=== PATIENT | female | born 1980 | race Caucasian/White ===

== ENCOUNTER 2021-12-20 15:01 | Emergency (ER) | payer OTHER ==
--- OUTSIDE RECORDS SUMMARY | 2021-12-20 15:06 | XMS REPORT | Continuity of Care Document ---
:1980 Author Organization [facility] t Address [address] [place] [address] Care Team Providers Name Role Phone Tamela Bender Primary Care Physician UNGERHERB Attending Clinician Unavailable Fiordaliza GREGORY Attending Clinician FIORDALIZA Attending Clinician Unavailable Only, Test Attending Clinician Unavailable 2, Lab Attending Clinician Unavailable GUCCI DAWSON Attending Clinician Unavailable Gucci Scott Attending Clinician Doctor Unassigned, Name Attending Clinician Unavailable Hector NICHOLS Attending Clinician Unavailable FIORDALIZA Admitting Clinician Unavailable Fiordaliza GREGORY Admitting Clinician Hector NICHOLS Admitting Clinician Unavailable Payers Payer Name Policy Type Policy Number Effective Date Expiration Date Tommy beatty FORMERLY [facility] [id number] 2017 00:00:00 PLUS Problems Condition Condition Condition Status Onset Resolution Last Treating Co mments Source Name Details Category Date Date Treatment Clinician Date Right Right Disease Active 2020-07 [facility] nephrolith nephrolith 1-30 it y of iasis iasis 00:00: [place] 00 Medical Branch Acute Acute Disease Active 2020-07 Overview: Univer s flank pain flank pain 1-19 [facility] ity of 00:00: g of this note Medical might be Branch different from the original. 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 Added automatic ally from request for surgery [id number] Right Right Disease Active Univers ureteral ureteral 9 ity of stone stone 00:00: [place] [facility] Irregular Irregular Disease Active Uni vers menstrual menstrual 03-06 ity of cycle cycle 00:00: [place] [facility] Dyspareuni Dyspareuni Disease Active U nivers a in a in 03-06 ity of female female 00:00: [place] [facility] Vaginal Vaginal Disease Active Univers dryness dryness 8 ity of 00:00: [place] [facility] Tourette Tourette Disease Active 2019-07 Unive rs syndrome syndrome 0-26 ity of 00:00: [place] [facility] Neuropathi Neuropathi Disease Active 2019-07 U nivers c pain c pain 0-26 ity of 00:00: [place] [facility] Hepatomega Hepatomega Disease Active 2019-07 U nivers ly ly 0-26 ity of 00:00: [place] [facility] Allergic Allergic Disease Active 2019-07 Unive rs rhinitis rhinitis 0-26 ity of due to due to 00:00: [place] pollen, pollen, 00 Medical unspecifie unspecifie Br anch d d seasonalit seasonalit y y Kidney Kidney Disease Active Overview: Univer s disease disease 5-25 Formattin ity o f 00:00: g of this [place] 00 note Medical might be Branch different from the original. Kidney stones Hidradenit Hidradenit Disease Active Overview : Univers is is 5-25 Formattin ity of suppurativ suppurativ 00:00: g of this [place] a a 00 note Medical might be Branch different from the original. Stage 3 Obesity Obesity Disease Active Univers (BMI (BMI 7-15 ity of 30-39.9) 30-39.9) 00:00: [place] 00 Medical Branch Allergies, Adverse Reactions, Alerts Allergy Allergy Status Severity Reaction(s) Onset Inactive Treating Comm ents Source Name Type Date Date Clinician NO KNOWN Drug Active Univers ALLERGIE Class ity of S [facility] Social History Social Habit Start Date Stop Date Quantity Comments Source History of Cigarette Smoker Universi ty of tobacco use [facility] Exposure to Not sure University of SARS-CoV-2 [facility] (event) Branch Alcohol intake 2021-06-10 2021-06-10 Current drinker Unive rsity of 00:00:00 00:00:00 of alcohol [facility] (finding) [place] Tobacco use and 2017-12-02 2017-12-02 Never used Universit y of exposure 00:00:00 00:00:00 [facility] Sex Ass[birth year] At [birth year] Universit y of 00:00:00 00:00:00 [facility] Smoking Status Start Date Stop Date Source Current every day smoker 2017-12-02 00:00:00 Uni versity of [facility] Medications Ordered Filled Start Stop Current Ordering Indication Dosage Frequency Signature Comments Components Source Medication Medication Date Date Medication? Clinician (SIG) Name Name sennosides 2020-07 Yes 8.6mg 8.6 mg, Uni vers (SENOKOT) 2- Oral, ity of tablet 8.6 15:00: DAILY, [place] mg 00 First dose Medical on Tue [place] 06/10/21 at 0900, Until Discontinu ed, Routine sennosides 2020-07 Yes 8.6mg 8.6 mg, Uni vers (SENOKOT) 2- Oral, ity of tablet 8.6 15:00: DAILY, [place] mg 00 First dose Medical on Tue [place] 06/10/21 at 0900, Until Discontinu ed, Routine naproxen 2020-07- No 2{capsu Take 2 Uni vers sodium -06-10 le} capsules ity of (ALEVE) 220 10:09: 00:00 by mouth [place] mg capsule 57 :00 daily. Medical Branch naproxen 2020-07- No 2{capsu Take 2 Uni vers sodium -06-10 le} capsules ity of (ALEVE) 220 10:09: 00:00 by mouth [place] mg capsule 57 :00 daily. Medical Branch oxybutynin 2020-07 Yes 5mg 5 mg, Univer s chloride 2- Oral, TID, ity o f (DITROPAN) 02:00: First dose [place] tablet 5 mg 00 on [facility] 06/09/21 Branch at 2000, Until Discontinu ed, Routine gabapentin 2020-07 Yes 300mg 300 mg, Uni vers (NEURONTIN) 2- Oral, TID, it y of capsule 300 02:00: First dose [place] mg 00 on [facility] 06/09/21 Branch at 2000, Until Discontinu ed, Routine oxybutynin 2020-07 Yes 5mg 5 mg, Univer s chloride 2-01 Oral, TID, ity o f (DITROPAN) 02:00: First dose [place] tablet 5 mg 00 on [facility] 06/09/21 Branch at 2000, Until Discontinu ed, Routine gabapentin 2020-07 Yes 300mg 300 mg, Uni vers (NEURONTIN) 2- Oral, TID, it y of capsule 300 02:00: First dose [place] mg 00 on [facility] 06/09/21 Branch at 2000, Until Discontinu ed, Routine tamsulosin 2020-07 Yes .4mg 0.4 mg, Univ ers (FLOMAX) 2-01 Oral, ity of capsule 0.4 01:15: DAILY, [place] mg 00 First dose Medical on [facility] 06/09/21 at 1915, Until Discontinu ed, Routine tamsulosin 2020-07 Yes .4mg 0.4 mg, Univ ers (FLOMAX) 2- Oral, ity of capsule 0.4 01:15: DAILY, [place] mg 00 First dose Medical on [facility] 06/09/21 at 1915, Until Discontinu ed, Routine acetaminoph 2020-07 Yes 650mg 650 mg, Un promise en 2-01 Oral, Q6H, ity of (TYLENOL) 00:00: First dose [place] tablet 650 00 on [facility] 06/09/21 Branch at 1800, Until Discontinu ed, Routine acetaminoph 2020-07 Yes 650mg 650 mg, Un promise en 2-01 Oral, Q6H, ity of (TYLENOL) 00:00: First dose [place] tablet 650 00 on [facility] 06/09/21 Branch at 1800, Until Discontinu ed, Routine acetaminoph 2020-07- No [id number] 650mg Take 2 Univers en 325 mg 2- 12-09 tablets by ity of tablet 00:00: 05:59 mouth [place] 00 :00 every 6 Medical (six) Branch hours as needed for Alternate with ibuprofen for pain scale 4-6 for up to 7 days. tamsulosin 2020-07- No [id number] .4mg Take 1 Univers 0.4 mg 24 2-01 12-09 capsule by ity of hr capsule 00:00: 05:59 mouth [place] 00 :00 daily for Medical 7 days. Branch oxybutynin 2020-07- No [id number] 5mg Take 1 Univers XL 08-11 tablet by ity of (DITROPAN 00:00: 05:59 mouth [place] XL) 5 mg 24 00 :00 daily for Med ical hr tablet 7 days. Branch acetaminoph 2020-07 No [id number] 650mg Take 2 Univers en 325 mg 08-11 tablets by ity of tablet 00:00: 05:59 mouth [place] 00 :00 every 6 Medical (six) Branch hours as needed for Alternate with ibuprofen for pain scale 4-6 for up to 7 days. tamsulosin 2020-07 No [id number] .4mg Take 1 Univers 0.4 mg 24 08-11 capsule by ity of hr capsule 00:00: 05:59 mouth [place] 00 :00 daily for Medical 7 days. Branch oxybutynin 2020-07 No [id number] 5mg Take 1 Univers XL 08-11 tablet by ity of (DITROPAN 00:00: 05:59 mouth [place] XL) 5 mg 24 00 :00 daily for Med ical hr tablet 7 days. Branch cephALEXin 2020-07 No [id number] 250mg Take 1 Univers 250 mg 08-11 capsule by ity of capsule 00:00: 05:59 mouth 4 [place] 00 :00 (four) Medical times Branch daily for 5 days. cephALEXin 2020-07- No [id number] 250mg Take 1 Univers 250 mg 08-11 capsule by ity of capsule 00:00: 05:59 mouth 4 [place] 00 :00 (four) Medical times Branch daily for 5 days. NaCl 0.9% 2020-07 Yes 1000mL at 100 Univ ers (NS) IV 1-30 mL/hr, IV ity of infusion 23:00: Infusion, [place] 1,000 mL 00 CONTINUOUS Medic al , Starting Branch on Tue06/09/21 at 1700, Until Discontinu ed, Routine lactated 2020-07 Yes 500mL at 75 Univers ringers IV 1-30 mL/hr, 500 ity of infusion 23:00: mL, IV [place] 500 mL 00 Infusion, Medical CONTINUOUS Branch , Starting on Tue06/09/21 at 1700, Until Discontinu ed, Routine, PACU NaCl 0.9% 2020-07 Yes 1000mL at 100 Univ ers (NS) IV 1-30 mL/hr, IV ity of infusion 23:00: Infusion, [place] 1,000 mL 00 CONTINUOUS Medic al , Starting Branch on Tue06/09/21 at 1700, Until Discontinu ed, Routine lactated 2020-07 Yes 500mL at 75 Univers ringers IV 1-30 mL/hr, 500 ity of infusion 23:00: mL, IV [place] 500 mL 00 Infusion, Medical CONTINUOUS Branch , Starting on Tue06/09/21 at 1700, Until Discontinu ed, Routine, PACU HYDROcodone 2020-07- No 1{tbl} 1 tablet, Univers -acetaminop 08-09 Oral, ity of hen (NORCO 23:00: 23:22 ONCE, 1 [place] 5) 5-325 mg 00 :00 dose, On Medi popeye tablet 1 Tue tablet 06/09/21 at 1700, Routine, PACU HYDROcodone 2020-07- No 1{tbl} 1 tablet, Univers -acetaminop 08-09 Oral, ity of hen (NORCO 23:00: 23:22 ONCE, 1 [place] 5) 5-325 mg 00 :00 dose, On Medi popeye tablet 1 Tue tablet 06/09/21 at 1700, Routine, PACU ketorolac 2020-07 Yes 15mg 15 mg, Univer s (TORADOL) 1-30 Slow IV ity of injection 22:54: Push, [place] 15 mg 51 Q6HPRN, 4 Medical doses, Branch Starting on Tue06/09/21 at 1654, Until Discontinu ed, Routine, Pain (scale 7-10)
F aculty member approving Restricted medication : TITO DEE ketorolac 2020-07 Yes 15mg 15 mg, Univer s (TORADOL) 1-30 Slow IV ity of injection 22:54: Push, [place] 15 mg 51 Q6HPRN, 4 Medical doses, Branch Starting on Tue06/09/21 at 1654, Until Discontinu ed, Routine, Pain (scale 7-10)
F aculty member approving Restricted medication : TITO DEE hyoscyamine 2020-07 Yes .125mg 0.125 mg, Univers sulfate 1-30 Sublingual ity of (LEVSIN/SL) 22:54: , Q4HPRN, [place] sublingual 40 Starting Medic al tablet on Tue Branch 0.125 mg 06/09/21 at 1654, Until Discontinu ed, Routine, Bladder spasms hyoscyamine 2020-07 Yes .125mg 0.125 mg, Univers sulfate 1-30 Sublingual ity of (LEVSIN/SL) 22:54: , Q4HPRN, [place] sublingual 40 Starting Medic al tablet on Tue Branch 0.125 mg 06/09/21 at 1654, Until Discontinu ed, Routine, Bladder spasms ondansetron 2020-07 Yes 4mg 4 mg, Slow Univers (ZOFRAN 1-30 IV Push, ity of (PF)) 22:52: Q4HPRN, [place] injection 4 33 Starting Medi popeye mg on Tue Branch 06/09/21 at 1652, Until Discontinu ed, Routine, Nausea and Vomiting (N/V) ondansetron 2020-07 Yes 4mg 4 mg, Slow Univers (ZOFRAN 1-30 IV Push, ity of (PF)) 22:52: Q4HPRN, [place] injection 4 33 Starting Medi popeye mg on Tue Branch 06/09/21 at 1652, Until Discontinu ed, Routine, Nausea and Vomiting (N/V) FENTanyl PF 2020-07- No 25ug 25 mcg, Un promise (SUBLIMAZE 30 12 Slow IV ity o f (PF)) 22:48: 05:50 Push, [place] injection 12 :59 Q5MIN PRN, Medi popeye 25 mcg 4 doses, Branch Starting on Tue06/09/21 at 1648, Until Tue06/09/21 at 2350, Routine, Pain (scale 4-6), PACU FENTanyl PF 2020-07- No 25ug 25 mcg, Un promise (SUBLIMAZE 08-09 12 Slow IV ity o f (PF)) 22:48: 05:50 Push, [place] injection 12 :59 Q5MIN PRN, Medi popeye 25 mcg 4 doses, Branch Starting on Tue06/09/21 at 1648, Until Tue06/09/21 at 2350, Routine, Pain (scale 4-6), PACU naproxen 2020-07 Yes 2{capsu Take 2 Univ ers sodium 1-29 le} capsules ity of (ALEVE) 220 08:38: by mouth [place] mg capsule 04 daily. Medical Branch naproxen 2020-07 Yes 2{capsu Take 2 Univ ers sodium 1-29 le} capsules ity of (ALEVE) 220 08:38: by mouth [place] mg capsule 04 daily. Medical Branch sulfamethox 2020-07- No [id number] 2{tbl} Take 2 Univers azole-trime 1-24 11-30 tablets by i ty of thoprim 00:00: 05:59 mouth 2 [place] (BACTRIM) 00 :00 (two) Medical 400-80 mg times Branch per tablet daily for 5 days. sulfamethox 2020-07- No [id number] 2{tbl} Take 2 Univers azole-trime 1-24 11-30 tablets by i ty of thoprim 00:00: 05:59 mouth 2 [place] (BACTRIM) 00 :00 (two) Medical 400-80 mg times Branch per tablet daily for 5 days. sulfamethox 2020-07- No [id number] 2{tbl} Take 2 Univers azole-trime 1-24 11-30 tablets by i ty of thoprim 00:00: 05:59 mouth 2 [place] (BACTRIM) 00 :00 (two) Medical 400-80 mg times Branch per tablet daily for 5 days. tamsulosin 2020-07 Yes [id number] .4mg Take 1 Univers (FLOMAX) 1-23 capsule by ity o f 0.4 mg 24 00:00: mouth [place] hr capsule 00 daily. Medical Branch tamsulosin 2020-07 Yes [id number] .4mg Take 1 Univers (FLOMAX) 1-23 capsule by ity o f 0.4 mg 24 00:00: mouth [place] hr capsule 00 daily. Medical Branch tamsulosin 2020-07 Yes [id number] .4mg Take 1 Univers (FLOMAX) 1-23 capsule by ity o f 0.4 mg 24 00:00: mouth [place] hr capsule 00 daily. Medical Branch tamsulosin 2020-07 Yes [id number] .4mg Take 1 Univers (FLOMAX) 1-23 capsule by ity o f 0.4 mg 24 00:00: mouth [place] hr capsule 00 daily. Medical Branch levoFLOXaci 2020-07- No 750mg 750 mg, IV Univers n in D5W 07-24 Piggyback, ity of (LEVAQUIN) 03:30: 03:54 ONCE, 1 [place] 750 mg/150 00 :00 dose, On Medic al mL Sat Branch Piggyback 05/23/21 750 mg at 2130, Administer over 90 Minutes, 150 mL
Reas on for Anti-Infec tive: Documented Infection< br>Documen syed Infection Site: Urine<br&g t;Duration of Therapy: 7 days acetaminoph 2020-07 No 1000mg 1,000 mg, Univers en 07-24 Oral, ity of (TYLENOL) 02:15: 01:19 ONCE, 1 [place] tablet 00 :00 dose, On Medical 1,000 mg Sat Branch 05/23/21 at 2014, BETTY ketorolac 2020-07 No 15mg 15 mg, Unive rs (TORADOL) 07-24 Slow IV ity of injection 02:15: 01:13 Push, [place] 15 mg 00 :00 ONCE, 1 Medical dose, On Branch 05/23/21 at 2014, BETTY
Fa culty member approving Restricted medication : Jamilah DAWSON ondansetron 2020-07 No 4mg 4 mg, Slow Univers (ZOFRAN 07-24 IV Push, ity of (PF)) 02:00: 01:13 ONCE, 1 [place] injection 4 00 :00 dose, On Medi popeye mg Sat Branch 05/23/21 at 2000, BETTY NaCl 0.9% 2020-07 No 1000mL at 999 Uni vers (NS) bolus 07-24 mL/hr, ity of infusion 02:00: 03:59 1,000 mL, [place] 1,000 mL 00 :00 IV Medical Infusion, Branch ONCE, 1 dose, On 05/23/21 at 2000, STAT ondansetron 2020-07 Yes [id number] 4mg Take 1 Univers (ZOFRAN 1-13 tablet by ity of ODT) 4 mg 00:00: mouth [place] disintegrat 00 every 8 Medic al ing tablet (eight) Branch hours as needed for Nausea and Vomiting (N/V). ondansetron 2020-07 Yes [id number] 4mg Take 1 Univers (ZOFRAN 1-13 tablet by ity of ODT) 4 mg 00:00: mouth [place] disintegrat 00 every 8 Medic al ing tablet (eight) Branch hours as needed for Nausea and Vomiting (N/V). ondansetron 2020-07 Yes [id number] 4mg Take 1 Univers (ZOFRAN 1-13 tablet by ity of ODT) 4 mg 00:00: mouth [place] disintegrat 00 every 8 Medic al ing tablet (eight) Branch hours as needed for Nausea and Vomiting (N/V). ondansetron 2020-07 Yes [id number] 4mg Take 1 Univers (ZOFRAN 1-13 tablet by ity of ODT) 4 mg 00:00: mouth [place] disintegrat 00 every 8 Medic al ing tablet (eight) Branch hours as needed for Nausea and Vomiting (N/V). ondansetron 2020-07 Yes [id number] 4mg Take 1 Univers (ZOFRAN 1-13 tablet by ity of ODT) 4 mg 00:00: mouth [place] disintegrat 00 every 8 Medic al ing tablet (eight) Branch hours as needed for Nausea and Vomiting (N/V). ondansetron 2020-07 Yes [id number] 4mg Take 1 Univers (ZOFRAN 1-13 tablet by ity of ODT) 4 mg 00:00: mouth [place] disintegrat 00 every 8 Medic al ing tablet (eight) Branch hours as needed for Nausea and Vomiting (N/V). ondansetron 2020-07 Yes [id number] 4mg Take 1 Univers (ZOFRAN 1-13 tablet by ity of ODT) 4 mg 00:00: mouth [place] disintegrat 00 every 8 Medic al ing tablet (eight) Branch hours as needed for Nausea and Vomiting (N/V). ondansetron 2020-07 Yes [id number] 4mg Take 1 Univers (ZOFRAN 1-13 tablet by ity of ODT) 4 mg 00:00: mouth [place] disintegrat 00 every 8 Medic al ing tablet (eight) Branch hours as needed for Nausea and Vomiting (N/V). ondansetron 2020-07 Yes [id number] 4mg Take 1 Univers (ZOFRAN 1-13 tablet by ity of ODT) 4 mg 00:00: mouth [place] disintegrat 00 every 8 Medic al ing tablet (eight) Branch hours as needed for Nausea and Vomiting (N/V). ondansetron 2020-07 Yes [id number] 4mg Take 1 Univers (ZOFRAN 1-13 tablet by ity of ODT) 4 mg 00:00: mouth [place] disintegrat 00 every 8 Medic al ing tablet (eight) Branch hours as needed for Nausea and Vomiting (N/V). levoFLOXaci 2020-07- No [id number] 750mg Take 1 Univers n 1-13 11-21 tablet by ity of (LEVAQUIN) 00:00: 05:59 mouth [place] 750 mg 00 :00 every 24 Medical tablet (twenty-fo Branch ur) hours for 7 days. levoFLOXaci 2020-07- No [id number] 750mg Take 1 Univers n 1-13 11-21 tablet by ity of (LEVAQUIN) 00:00: 05:59 mouth [place] 750 mg 00 :00 every 24 Medical tablet (twenty-fo Branch ur) hours for 7 days. naproxen 2020-07 Yes 2{capsu Take 2 Univ ers sodium 1-03 le} capsules ity of (ALEVE) 220 20:48: by mouth [place] mg capsule 00 daily. Medical Branch naproxen 2020-07 Yes 2{capsu Take 2 Univ ers sodium 1-03 le} capsules ity of (ALEVE) 220 20:48: by mouth [place] mg capsule 00 daily. Medical Branch naproxen 2020-07 Yes 2{capsu Take 2 Univ ers sodium 1-03 le} capsules ity of (ALEVE) 220 20:48: by mouth [place] mg capsule 00 daily. Medical Branch naproxen 2020-07 Yes 2{capsu Take 2 Univ ers sodium 1-03 le} capsules ity of (ALEVE) 220 20:48: by mouth [place] mg capsule 00 daily. Medical Branch naproxen 2020-07 Yes 2{capsu Take 2 Univ ers sodium 1-03 le} capsules ity of (ALEVE) 220 20:48: by mouth [place] mg capsule 00 daily. Medical Branch naproxen 2020-07 Yes 2{capsu Take 2 Univ ers sodium 1-03 le} capsules ity of (ALEVE) 220 20:48: by mouth [place] mg capsule 00 daily. Medical Branch naproxen 2020-07 Yes 2{capsu Take 2 Univ ers sodium 1-03 le} capsules ity of (ALEVE) 220 20:48: by mouth [place] mg capsule 00 daily. Medical Branch gabapentin 2020-07 Yes [id number] 300mg Take 1 Univers 300 mg 1-02 capsule by ity of capsule 00:00: mouth 3 [place] 00 (three) Medical times Branch daily. tamsulosin 2020-07 Yes [id number] .4mg Take 1 Univers (FLOMAX) 1-02 capsule by ity o f 0.4 mg 24 00:00: mouth [place] hr capsule 00 daily. Medical Branch oxybutynin 2020-07 Yes [id number] 5mg Take 1 Univers chloride 5 1-02 tablet by ity of mg tablet 00:00: mouth 3 [place] 00 (three) Medical times Branch daily as needed for Bladder spasms. gabapentin 2020-07 Yes [id number] 300mg Take 1 Univers 300 mg 1-02 capsule by ity of capsule 00:00: mouth 3 [place] 00 (three) Medical times Branch daily. tamsulosin 2020-07 Yes [id number] .4mg Take 1 Univers (FLOMAX) 1-02 capsule by ity o f 0.4 mg 24 00:00: mouth [place] hr capsule 00 daily. Medical Branch oxybutynin 2020-07 Yes [id number] 5mg Take 1 Univers chloride 5 1-02 tablet by ity of mg tablet 00:00: mouth 3 [place] 00 (three) Medical times Branch daily as needed for Bladder spasms. gabapentin 2020-07 Yes [id number] 300mg Take 1 Univers 300 mg 1-02 capsule by ity of capsule 00:00: mouth 3 [place] 00 (three) Medical times Branch daily. tamsulosin 2020-07 Yes [id number] .4mg Take 1 Univers (FLOMAX) 1-02 capsule by ity o f 0.4 mg 24 00:00: mouth [place] hr capsule 00 daily. Medical Branch oxybutynin 2020-07 Yes [id number] 5mg Take 1 Univers chloride 5 1-02 tablet by ity of mg tablet 00:00: mouth 3 (three) Medical times Branch daily as needed for Bladder spasms. gabapentin 2020-07 Yes [id number] 300mg Take 1 Univers 300 mg 1-02 capsule by ity of capsule 00:00: mouth 3 (three) Medical times Branch daily. tamsulosin 2020-07 Yes [id number] .4mg Take 1 Univers (FLOMAX) 1-02 capsule by ity o f 0.4 mg 24 00:00: mouth [place] hr capsule 00 daily. Medical Branch oxybutynin 2020-07 Yes [id number] 5mg Take 1 Univers chloride 5 1-02 tablet by ity of mg tablet 00:00: mouth (three) Medical times Branch daily as needed for Bladder spasms. gabapentin 2020-07 Yes [id number] 300mg Take 1 Univers 300 mg 1-02 capsule by ity of capsule 00:00: mouth (three) Medical times Branch daily. tamsulosin 2020-07 Yes [id number] .4mg Take 1 Univers (FLOMAX) 1-02 capsule by ity o f 0.4 mg 24 00:00: mouth [place] hr capsule 00 daily. Medical Branch oxybutynin 2020-07 Yes [id number] 5mg Take 1 Univers chloride 5 1-02 tablet by ity of mg tablet 00:00: mouth (three) Medical times Branch daily as needed for Bladder spasms. gabapentin 2020-07 Yes [id number] 300mg Take 1 Univers 300 mg 1-02 capsule by ity of capsule 00:00: mouth (three) Medical times Branch daily. oxybutynin 2020-07 Yes [id number] 5mg Take 1 Univers chloride 5 1-02 tablet by ity of mg tablet 00:00: mouth (three) Medical times Branch daily as needed for Bladder spasms. gabapentin 2020-07 Yes [id number] 300mg Take 1 Univers 300 mg 1-02 capsule by ity of capsule 00:00: mouth (three) Medical times Branch daily. oxybutynin 2020-07 Yes [id number] 5mg Take 1 Univers chloride 5 1-02 tablet by ity of mg tablet 00:00: mouth 3 (three) Medical times Branch daily as needed for Bladder spasms. gabapentin 2020-07 Yes [id number] 300mg Take 1 Univers 300 mg 1-02 capsule by ity of capsule 00:00: mouth [place] (three) Medical times Branch daily. oxybutynin 2020-07 Yes [id number] 5mg Take 1 Univers chloride 5 1-02 tablet by ity of mg tablet 00:00: mouth 3 [place] (three) Medical times Branch daily as needed for Bladder spasms. gabapentin 2020-07 Yes [id number] 300mg Take 1 Univers 300 mg 1-02 capsule by ity of capsule 00:00: mouth 3 [place] (three) Medical times Branch daily. oxybutynin 2020-07 Yes [id number] 5mg Take 1 Univers chloride 5 1-02 tablet by ity of mg tablet 00:00: mouth 3 [place] (three) Medical times Branch daily as needed for Bladder spasms. gabapentin 2020-07 Yes [id number] 300mg Take 1 Univers 300 mg 1-02 capsule by ity of capsule 00:00: mouth [address] [place] [address] () Medical times Branch daily. gabapentin 2020-07 Yes [id number] 300mg Take 1 Univers 300 mg 1-02 capsule by ity of capsule 00:00: mouth 3 [place] (three) Medical times Branch daily. gabapentin 2020-07 Yes [id number] 300mg Take 1 Univers 300 mg 1-02 capsule by ity of capsule 00:00: mouth 3 [place] (three) Medical times Branch daily. oxybutynin 2020-07- No [id number] 5mg Take 1 Univers chloride 5 1-02 12- tablet by ity of mg tablet 00:00: 00:00 mouth 3 [place] 00 :00 (three) Medical times Branch daily as needed for Bladder spasms. oxybutynin 2020-07- No [id number] 5mg Take 1 Univers chloride 5 1-02 12- tablet by ity of mg tablet 00:00: 00:00 mouth 3 [place] 00 :00 (three) Medical times Branch daily as needed for Bladder spasms. tamsulosin 2020-07- No [id number] .4mg Take 1 Univers (FLOMAX) 1- 11-23 capsule by ity of 0.4 mg 24 00:00: 00:00 mouth [place] hr capsule 00 :00 daily. Medical Branch tamsulosin 2020-07- No [id number] .4mg Take 1 Univers (FLOMAX) 07-12-23 capsule by ity of 0.4 mg 24 00:00: 00:00 mouth [place] hr capsule 00 :00 daily. Medical Branch tamsulosin 2020-07- No [id number] .4mg Take 1 Univers (FLOMAX) 07-1223 capsule by ity of 0.4 mg 24 00:00: 00:00 mouth [place] hr capsule 00 :00 daily. Medical Branch Estradiol 2020-07 Yes [id number] 10ug Insert 1 Univers (VAGIFEM) 0-01 tablet ity of 10 mcg 00:00: into [place] tablet 00 vagina 2 Medical (two) Branch times per week. Estradiol 2020-07 Yes [id number] 10ug Insert 1 Univers (VAGIFEM) 0-01 tablet ity of 10 mcg 00:00: into [place] tablet 00 vagina 2 Medical (two) Branch times per week. Estradiol 2020-07 Yes [id number] 10ug Insert 1 Univers (VAGIFEM) 0-01 tablet ity of 10 mcg 00:00: into [place] tablet 00 vagina 2 Medical (two) Branch times per week. Estradiol 2020-07 Yes [id number] 10ug Insert 1 Univers (VAGIFEM) 0-01 tablet ity of 10 mcg 00:00: into [place] tablet 00 vagina 2 Medical (two) Branch times per week. Estradiol 2020-07 Yes [id number] 10ug Insert 1 Univers (VAGIFEM) 0-01 tablet ity of 10 mcg 00:00: into [place] tablet 00 vagina 2 Medical (two) Branch times per week. Estradiol 2020-07 Yes [id number] 10ug Insert 1 Univers (VAGIFEM) 0-01 tablet ity of 10 mcg 00:00: into [place] tablet 00 vagina 2 Medical (two) Branch times per week. Estradiol 2020-07 Yes [id number] 10ug Insert 1 Univers (VAGIFEM) 0-01 tablet ity of 10 mcg 00:00: into [place] tablet 00 vagina 2 Medical (two) Branch times per week. Estradiol 2020-07 Yes [id number] 10ug Insert 1 Univers (VAGIFEM) 0-01 tablet ity of 10 mcg 00:00: into [place] tablet 00 vagina 2 Medical (two) Branch times per week. Estradiol 2020-07 Yes [id number] 10ug Insert 1 Univers (VAGIFEM) 0-01 tablet ity of 10 mcg 00:00: into [place] tablet 00 vagina 2 Medical (two) Branch times per week. Estradiol 2020-07 Yes [id number] 10ug Insert 1 Univers (VAGIFEM) 0-01 tablet ity of 10 mcg 00:00: into [place] tablet 00 vagina 2 Medical (two) Branch times per week. Estradiol 2020-07 Yes [id number] 10ug Insert 1 Univers (VAGIFEM) 0-01 tablet ity of 10 mcg 00:00: into [place] tablet 00 vagina 2 Medical (two) Branch times per week. Estradiol 2020-07 Yes [id number] 10ug Insert 1 Univers (VAGIFEM) 0-01 tablet ity of 10 mcg 00:00: into [place] tablet 00 vagina 2 Medical (two) Branch times per week. norethindro Yes [id number] 1{tbl} Take 1 Univers ne 0.35 mg 9-17 tablet by ity of tablet 00:00: mouth [place] 00 daily. Medical Branch Estradiol Yes [id number] 10ug Insert 1 Univers (VAGIFEM) 9-17 tablet ity of 10 mcg 00:00: into [place] tablet 00 vagina at Medical bedtime. Branch norethindro Yes [id number] 1{tbl} Take 1 Univers ne 0.35 mg 9-17 tablet by ity of tablet 00:00: mouth [place] 00 daily. Medical Branch Estradiol Yes [id number] 10ug Insert 1 Univers (VAGIFEM) 9-17 tablet ity of 10 mcg 00:00: into [place] tablet 00 vagina at Medical bedtime. Branch norethindro Yes [id number] 1{tbl} Take 1 Univers ne 0.35 mg 9-17 tablet by ity of tablet 00:00: mouth [place] 00 daily. Medical Branch Estradiol Yes [id number] 10ug Insert 1 Univers (VAGIFEM) 9-17 tablet ity of 10 mcg 00:00: into [place] tablet 00 vagina at Medical bedtime. Branch norethindro Yes [id number] 1{tbl} Take 1 Univers ne 0.35 mg 9-17 tablet by ity of tablet 00:00: mouth [place] 00 daily. Medical Branch Estradiol Yes [id number] 10ug Insert 1 Univers (VAGIFEM) 9-17 tablet ity of 10 mcg 00:00: into [place] tablet 00 vagina at Medical bedtime. Branch [facility] Yes [id number] 1{tbl} Take 1 Univers ne 0.35 mg 9-17 tablet by ity of tablet 00:00: mouth [place] 00 daily. [facility] Estradiol Yes [id number] 10ug Insert 1 Univers (VAGIFEM) 9-17 tablet ity of 10 mcg 00:00: into [place] tablet 00 vagina at Medical bedtime. Branch [facility] Yes [id number] 1{tbl} Take 1 Univers ne 0.35 mg 9-17 tablet by ity of tablet 00:00: mouth [place] 00 daily. [facility] Estradiol Yes [id number] 10ug Insert 1 Univers (VAGIFEM) 9-17 tablet ity of 10 mcg 00:00: into [place] tablet 00 vagina at Medical bedtime. [place] [facility] Yes [id number] 1{tbl} Take 1 Univers ne 0.35 mg 9-17 tablet by ity of tablet 00:00: mouth [place] 00 daily. [facility] Estradiol Yes [id number] 10ug Insert 1 Univers (VAGIFEM) 9-17 tablet ity of 10 mcg 00:00: into [place] tablet 00 vagina at Medical bedtime. [place] [facility] Yes [id number] 1{tbl} Take 1 Univers ne 0.35 mg 9-17 tablet by ity of tablet 00:00: mouth [place] 00 daily. [facility] Estradiol Yes [id number] 10ug Insert 1 Univers (VAGIFEM) 9-17 tablet ity of 10 mcg 00:00: into [place] tablet 00 vagina at Medical bedtime. Branch [facility] Yes [id number] 1{tbl} Take 1 Univers ne 0.35 mg 9-17 tablet by ity of tablet 00:00: mouth [place] 00 daily. [facility] Estradiol Yes [id number] 10ug Insert 1 Univers (VAGIFEM) 9-17 tablet ity of 10 mcg 00:00: into [place] tablet 00 vagina at Medical bedtime. Branch [facility] Yes [id number] 1{tbl} Take 1 Univers ne 0.35 mg 9-17 tablet by ity of tablet 00:00: mouth [place] 00 daily. [facility] Estradiol 2020-0 Yes [id number] 10ug Insert 1 Univers (VAGIFEM) 9-17 tablet ity of 10 mcg 00:00: into [place] tablet 00 vagina at Medical bedtime. Branch norethindro 2020-0 Yes [id number] 1{tbl} Take 1 Univers ne 0.35 mg 9-17 tablet by ity of tablet 00:00: mouth [place] 00 daily. [facility] Estradiol 2020-0 Yes [id number] 10ug Insert 1 Univers (VAGIFEM) 9-17 tablet ity of 10 mcg 00:00: into [place] tablet 00 vagina at Medical bedtime. Branch norethindro 0 Yes [id number] 1{tbl} Take 1 Univers ne 0.35 mg 9-17 tablet by ity of tablet 00:00: mouth [place] 00 daily. [facility] Estradiol 2020-0 Yes [id number] 10ug Insert 1 Univers (VAGIFEM) 9-17 tablet ity of 10 mcg 00:00: into [place] tablet 00 vagina at Medical bedtime. Branch escitalopra 0 Yes Univer s m oxalate 8-21 ity of 20 mg 00:00: [place] tablet 00 [facility] metFORMIN 2020-0 Yes Univers 500 mg 8-21 ity of tablet 00:00: [place] 00 [facility] escitalopra 2020-0 Yes Univer s m oxalate 8-21 ity of 20 mg 00:00: [place] tablet 00 [facility] metFORMIN 2020-0 Yes Univers 500 mg 8-21 ity of tablet 00:00: [place] 00 [facility] escitalopra 2020-0 Yes Univer s m oxalate 8-21 ity of 20 mg 00:00: [place] tablet 00 [facility] metFORMIN 1-0 Yes Univers 500 mg 8-21 ity of tablet 00:00: [place] 00 [facility] escitalopra 2020-0 Yes Univer s m oxalate 8-21 ity of 20 mg 00:00: [place] tablet 00 [facility] metFORMIN 1-0 Yes Univers 500 mg 8-21 ity of tablet 00:00: [place] 00 [facility] escitalopra 2020-0 Yes Univer s m oxalate 8-21 ity of 20 mg 00:00: [place] tablet 00 Medical Branch metFORMIN 1-0 Yes Univers 500 mg 8-21 ity of tablet 00:00: [place] 00 Medical Branch escitalopra 2020-0 Yes Univer s m oxalate 8-21 ity of 20 mg 00:00: [place] tablet 00 Medical Branch metFORMIN 2020-0 Yes Univers 500 mg 8-21 ity of tablet 00:00: [place] [facility] escitalopra 2020-0 Yes Univer s m oxalate 8-21 ity of 20 mg 00:00: [place] tablet 00 Medical Branch metFORMIN 2020-0 Yes Univers 500 mg 8-21 ity of tablet 00:00: [place] [facility] escitalopra 2020-0 Yes Univer s m oxalate 8-21 ity of 20 mg 00:00: [place] tablet 00 Medical Branch metFORMIN 2020-0 Yes Univers 500 mg 8-21 ity of tablet 00:00: [place] [facility] escitalopra 2020-0 Yes Univer s m oxalate 8-21 ity of 20 mg 00:00: [place] tablet 00 Medical Branch metFORMIN 2020-0 Yes Univers 500 mg 8-21 ity of tablet 00:00: [place] [facility] escitalopra 2020-0 Yes Univer s m oxalate 8-21 ity of 20 mg 00:00: [place] tablet 00 Medical Branch metFORMIN 2020-0 Yes Univers 500 mg 8-21 ity of tablet 00:00: [place] [facility] escitalopra 2020-0 Yes Univer s m oxalate 8-21 ity of 20 mg 00:00: [place] tablet 00 Medical Branch metFORMIN 1-0 Yes Univers 500 mg 8-21 ity of tablet 00:00: [place] [facility] escitalopra 2020-0 Yes Univer s m oxalate 8-21 ity of 20 mg 00:00: [place] tablet 00 Medical Branch metFORMIN 1-0 Yes Univers 500 mg 8-21 ity of tablet 00:00: [place] [facility] traZODone 2020-0 Yes TAKE 1 AND Un promise 100 mg 8-11 1/2 ity of tablet 00:00: TABLETS BY [place] [address] MOUTH [facility] EVERY DAY [place] AT BEDTIME NEEDED traZODone 2020-0 Yes TAKE 1 AND Un promise 100 mg 8-11 1/2 ity of tablet 00:00: TABLETS BY [place] [address] MOUTH [facility] EVERY DAY [place] AT BEDTIME NEEDED traZODone 2020-0 Yes TAKE 1 AND Un promise 100 mg 8-11 1/2 ity of tablet 00:00: TABLETS BY [address] EVERY DAY Branch AT BEDTIME NEEDED traZODone 2020-0 Yes TAKE 1 AND Un promise 100 mg 8-11 1/2 ity of tablet 00:00: TABLETS BY [address] EVERY DAY Branch AT BEDTIME NEEDED traZODone 2020-0 Yes TAKE 1 AND Un promise 100 mg 8-11 1/2 ity of tablet 00:00: TABLETS BY [address] EVERY DAY Branch AT BEDTIME NEEDED traZODone 2020-0 Yes TAKE 1 AND Un promise 100 mg 8-11 1/2 ity of tablet 00:00: TABLETS BY [address] EVERY DAY Branch AT BEDTIME NEEDED traZODone 2020-0 Yes TAKE 1 AND Un promise 100 mg 8-11 1/2 ity of tablet 00:00: TABLETS BY [address] EVERY DAY Branch AT BEDTIME NEEDED traZODone 2020-0 Yes TAKE 1 AND Un promise 100 mg 8-11 1/2 ity of tablet 00:00: TABLETS BY [address] EVERY DAY Branch AT BEDTIME NEEDED traZODone 2020-0 Yes TAKE 1 AND Un promise 100 mg 8-11 1/2 ity of tablet 00:00: TABLETS BY [address] EVERY DAY Branch AT BEDTIME NEEDED traZODone 2020-0 Yes TAKE 1 AND Un promise 100 mg 8-11 1/2 ity of tablet 00:00: TABLETS BY [address] EVERY DAY Branch AT BEDTIME NEEDED traZODone 2020-0 Yes TAKE 1 AND Un promise 100 mg 8-11 1/2 ity of tablet 00:00: TABLETS BY [address] EVERY DAY Branch AT BEDTIME NEEDED traZODone 2020-0 Yes TAKE 1 AND Un promise 100 mg 8-11 1/2 ity of tablet 00:00: TABLETS BY [address] EVERY DAY Branch AT BEDTIME NEEDED Vital Signs Vital Name Observation Time Observation Value Comments Source Systolic blood 2021-06-10 13:34:00 114 mm[Hg] Univer sity of pressure [facility] Diastolic blood 2021-06-10 13:34:00 65 mm[Hg] Unive rsity of pressure [place] [facility] Heart rate 2021-06-10 13:34:00 59 /min [facility] [place] [facility] Body temperature 2021-06-10 13:34:00 36.11 [place] Univ ersity of [place] [facility] Respiratory rate 2021-06-10 13:34:00 16 /min Univ ersity of [place] [facility] Oxygen saturation in 2021-06-10 13:34:00 94 /min University of Arterial blood by [employer] Pulse oximetry Branch Body height 2021-06-10 06:11:00 165.1 cm [facility] [place] [facility] Body weight 2021-06-10 06:11:00 97.3 kg [facility] [place] [facility] BMI 2021-06-10 06:11:00 35.70 kg/m2 [facility] [place] [facility] Heart rate 2021-06-10 02:00:00 88 /min [facility] [place] [facility] Oxygen saturation in 2021-06-10 02:00:00 98 /min University of Arterial blood by [place] [employer] Pulse oximetry Branch Systolic blood 2021-06-10 01:00:00 123 mm[Hg] Univer sity of pressure [place] [facility] Diastolic blood 2021-06-10 01:00:00 76 mm[Hg] Unive rsity of pressure [place] [facility] Respiratory rate 2021-06-10 01:00:00 14 /min Univ ersity of [place] [facility] Body temperature 2021-06-09 22:50:00 36.39 [place] Univ ers[facility] [place] [facility] Body height 2021-06-09 19:07:00 165.1 cm [facility] [place] [facility] Body weight 2021-06-09 19:07:00 97.3 kg [facility] [place] [facility] BMI 2021-06-09 19:07:00 35.70 kg/m2 [facility] [place] [facility] Systolic blood 2021-05-24 02:00:00 123 mm[Hg] Univer sity of pressure [place] [facility] Diastolic blood 2021-05-24 02:00:00 91 mm[Hg] Unive rsity of pressure [place] [facility] Heart rate 2021-05-24 02:00:00 97 /min [facility] [place] [facility] Respiratory rate 2021-05-24 02:00:00 16 /min [facility] Oxygen saturation in 2021-05-24 02:00:00 97 /min [facility] Arterial blood by [facility] Pulse oximetry Branch Body temperature 2021-05-24 00:39:00 37.61 [place] [facility] Body height 2021-05-24 00:39:00 167.6 cm [facility] Body weight 2021-05-24 00:39:00 106.142 kg [facility] BMI 2021-05-24 00:39:00 37.77 kg/m2 [facility] Procedures Procedure Date / Time Performing Clinician Source Performed URINE CULTURE 2021-06-09 21:51:00 [facility] 2021-06-09 21:17:00 Fiordaliza [facility] URETEROSCOPIC STONE 2021-06-09 21:17:00 Fiordaliza [facility] POCT TEST 2021-06-09 19:13:00 Fabiano Holly [facility] POCT TEST 2021-06-09 19:13:00 Fabiano Holly [facility] CONSENT/REFUSAL FOR 2021-06-09 18:44:26 Doctor Unassigned, No [facility] DIAGNOSIS AND TREATMENT [facility] CONSENT/REFUSAL FOR 2021-06-09 18:44:26 Doctor Unassigned, No [facility] DIAGNOSIS AND TREATMENT [facility] ASSIGNMENT OF BENEFITS 2021-06-09 18:43:24 Doctor Unassigned, No [facility] ASSIGNMENT OF BENEFITS 2021-06-09 18:43:24 Doctor Unassigned, No [facility] COVID-19 (ID NOW RAPID 2021-06-08 19:15:00 Tito Dee [facility] TESTING) [facility] LACTIC ACID WHOLE BLOOD 2021-05-24 01:02:00 Jamilah Dawson [facility] MAGNESIUM 2021-05-24 01:00:00 Jamilah Dawson [facility] o f [facility] COMP. METABOLIC PANEL 2021-05-24 01:00:00 Jamilah Dawson [facility] ([id number]) [facility] CBC WITH DIFF 2021-05-24 01:00:00 Jamilah Dawson [place] o f [facility] URINALYSIS 2021-05-24 01:00:00 Jamilah Dawson [place] o f [facility] NOTICE OF PRIVACY 2021-05-24 00:26:40 Doctor Unassigned, No Univ [facility] PRACTICES Name [facility] CONSENT/REFUSAL FOR 2021-05-24 00:26:27 [facility]assigned, No [facility] SURGERY - [place] 2021-05-12 05:01:00 Doctor Unassigned, N o [facility] Name [facility] Encounters Start End Encounter Admission Attending Care Care Encounter Source Date/Time Date/Time Type Type Clinicians Facility Department ID 2021-06-26 2021-06-26 Outpatient R BLAZE UNGER [facility] [id number] Univers 14:00:00 14:00:00 ity of [facility] 2021-06-12 2021-06-12 Patient Fiordaliza [facility] [id number] Univers 00:00:00 [facility]00[id number] ity of [facility] 4.2.7.2.686 [facility] - [phone] [facility] Branch 2021-06-09 2021-06-10 Outpatient R FIORDALIZA [facility] SUU [id number] Univers 12:42:00 14:00:00 TITO ity of [facility] 2021-06-09 2021-06-10 Hospital JULIO Dee [id number] Univers 12:42:00 14:00:00 Encounter Tito GWEN [id number] ity of [facility] 4.2.7.2.686 [place] [id number] [facility] 091 Branch 2021-06-09 2021-06-09 Surgery Fiordaliza JULIO [id number] Univers 18:00:00 20:44:00 Tito GWEN [id number] it y of [facility] 4.2.7.2.686 [place] [id number] [facility] 103 Branch 2021-06-08 2021-06-08 Laboratory Only, Adc Test [facility] 1.2.840. [id number] Univers 13:03:39 13:18:39 Only Tito Dee [id number] ity of [place] 4.2.7.2.686 [facility] [id number] [facility] 353 Branch 2021-06-08 2021-06-08 Outpatient [facility] [id number] Univers 13:00:00 13:00:00 [id number] ity [facility] 2021-06-08 2021-06-08 Outpatient R FIORDALIZA [facility] [id number] Univers 13:00:00 13:00:00 TITO ity [facility] 2021-06-03 2021-06-03 Telephone Fiordaliza [facility] [id number] Univers 00:00:00 00:00:00 [facility] [id number] it y of [place] 4.2.7.2.686 [facility] - [id number] Med ical [facility] 204 Branch 2021-06-03 2021-06-03 Patient Fiordaliza [facility] 1.2.840.114 [id number] Univers 00:00:00 00:00:00 Secure Msg [facility] [id number] ity of [place] 4.2.7.2.686 [facility] - [id number] Med ical [facility] 204 Branch 2021-06-02 2021-06-02 Outpatient R [facility] [id number] Univers 10:30:00 10:30:00 [id number] ity [facility] 2021-06-02 2021-06-02 Outpatient R FIORDALIZA [facility] [id number] Univers 10:30:00 10:30:00 TITO ity [facility] 2021-06-02 2021-06-02 Millinery Designer 2, Adc Lab [facility] 1.2.840.114 [id number] Univers 10:25:05 10:29:12 Visit Tito Dee [id number] ity of [facility] [place] [id number] [place] dical [facility] 353 [facility] 2021-06-02 2021-06-02 Refill [facility] 1.2.840.114 [id number] Univers 00:00:00 00:00:00 [facility] [id number] i ty of [facility] [place] [id number] [facility] 204 [facility] 2021-05-29 2021-05-29 Telephone [facility] 1.2.840.114 [id number] Univers 00:00:00 00:00:00 Tito MUKILTEO 350.1.13.10 i ty of [facility] [place] [id number] [facility] 204 [facility] 2021-05-23 2021-05-23 Emergency X Jamilah DAWSON [facility] ERT [id number] Univers 18:31:00 22:25:00 ity of [facility] 2021-05-23 2021-05-23 Emergency Jamilah Dawson [facility] 1.2.840.114 [id number] Univers 18:31:00 22:25:00 Gucci DORCAS 350.1.13.10 i ty of [facility] 4.2.7.2.686 [facility] [id number] [facility] 084 [place] 2021-05-20 2021-05-20 Outpatient [facility] [id number] Univers 14:30:00 14:30:00 [id number] ity of [facility] 2021-05-20 2021-05-20 Telephone [facility] 1.2.840.114 [id number] Univers 00:00:00 00:00:00 [facility] 350.1.13.10 it y of [place] 4.2.7.2.686 [facility] [id number] Med ical [facility] 204 [place] 2021-05-12 2021-05-12 Orders Doctor PADMA 1.2.840.114 [id number] Univers 00:00:00 00:00:00 Only Unassigned, GWEN 350.1.13.[address] [facility] 4.2.7.2.686 [place] [id number] [address] 2019-07-20 2019-07-20 Emergency X SIMONE [facility] ERT [id number] Univers 12:42:42 15:59:00 STEPHEN ity of [facility] Results Test Description Test Time Test Comments Results Result Comments Source URINE CULTURE 2021-06-10 22:03:09 Test Item Value Reference Range Interpretation Comme nts URINE CULTURE (test code = 630-4) No aerobic growth (< 1000 CFU/mL) [id number] 19:13:00 Test Item Value Reference Range Interpretation Comments POCT PREG (test code = 1605) Negative On board controls acceptable with C Yes Line (test code = 3574) POCT PREG LOT # (test code = 3575) POCT PREG TEST DATE (test code = 3576) [facility] [id number] 19:13:00 Test Item Value Reference Range Interpretation Comments POCT PREG (test code = 1605) Negative On board controls acceptable with C Yes Line (test code = 3574) POCT PREG LOT # (test code = 3575) POCT PREG TEST DATE (test code = 3576) [facility]21[facility]14 02:02:47 Test Item Value Reference Range Interpretation Comments MAGNESIUM (test code = 2515395124) 1.7 mg/dL 1.7-2.4 Lab Interpretation (test code = Normal 95285-9) [facility] (32335)2021-05-24 02:02:26 Test Item Value Reference Range Interpretation Comments NA (test code = 131 mmol/L 135-145 L 0660163425) K (test code = 3.7 mmol/L 3.5-5.0 4781007486) CL (test code = 98 mmol/L 98-108 7219416652) CO2 TOTAL (test code = 24 mmol/L 23-31 8136140950) AGAP (test code = 2-16 3908294098) BUN (test code = 12 mg/dL 7-23 3083646924) GLUCOSE (test code = 93 mg/dL 70-110 7604882564) CREATININE (test code = 0.78 mg/dL 0.50-1.04 8791932836) TOTAL BILI (test code = 0.8 mg/dL 0.1-1.3 3609967114) CALCIUM (test code = 9.4 mg/dL 8.6-10.6 3882169638) T PROTEIN (test code = 6.9 g/dL 6.3-8.2 6112419066) ALBUMIN (test code = 3.8 g/dL 3.5-5.0 6756880108) ALK PHOS (test code = 77 U/L 34-122 6435003651) ALTv (test code = 12 U/L 5-35 2-6) AST(SGOT) (test code = 19 U/L 13-40 2367846933) eGFR (test code = mL/min/1.73m2 1566819804) ROWAN (test code = ROWAN) Association of Glomerular Filtration Rate (GFR) and Staging of Kidney Disease* + --+ --+ ------+| GFR (mL/min/1.73 m2) ?| With Kidney Damage ?| ?Without Kidney Damage+ --------+ --------+ +| ?>90 ?| ?Stage one ?| ? Normal ?+ ---+ ---+ -------+| ?60-89 ?| ?Stage two ?| ? Decreased GFR ? + --+ --+ ------+| ?30-59 ?| ?Stage three ?| ? Stage three ? + --+ --+ ------+| ?15-29 ?| ?Stage four ? | ? Stage four ?+ ---+ ---+ -------+| ?<15 (or dialysis) ? ?| ?Stage five ? | ? Stage five ?+ ---+ ---+ -------+ *Each stage assumes the associated GFR level has been in effect for at least three months. ?Stages 1 to 5, with or without kidney disease, indicate chronic kidney disease. Notes: Determination of stages one and two (with eGFR >59mL/min/1.73 m2) requires estimation of kidney damage for at least three months as defined by structural or functional abnormalities of the kidney, manifested by either:Pathological abnormalities or Markers of kidney damage (including abnormalities in the composition of the blood or urine or abnormalities in imaging tests). Lab Interpretation Abnormal (test code = 06823-3) [facility] WITH [id number] 01:46:06 Test Item Value Reference Range Interpretation Comments WBC (test code = See_Comment H [Automated 6690-2) message] The system which generated this result transmit syed reference range : 4.30 - 11.10 10*3/?L. The reference range was not used to interpret this result as normal/abnormal . RBC (test code = See_Comment L [Automated 789-8) message] The system which generated this result transmit syed reference range : 3.93 - 5.25 10*6/?L. The reference range was not used to interpret this result as normal/abnormal . HGB (test code = 11.2 g/dL 11.6-15.0 L 718-7) HCT (test code = 33.1 % 35.7-45.2 L 4544-3) MCV (test code = 89.9 fL 80.6-95.5 787-2) MCH (test code = 30.4 pg 25.9-32.8 785-6) MCHC (test code = 33.8 g/dL 31.6-35.1 786-4) RDW-SD (test code = 47.4 fL 39.0-49.9 37939-4) RDW-CV (test code = 14.4 % 12.0-15.5 788-0) PLT (test code = See_Comment [Automated 777-3) message] The system which generated this result transmit syed reference range : 166 - 358 10*3/ ?L. The reference range was not u sed to interpret th is result as normal/abnormal . MPV (test code = 10.4 fL 9.5-12.9 31067-6) NRBC/100 WBC (test See_Comment [Automat ed code = 5762749100) message] The system which generated this result transmit syed reference range : 0.0 - 10.0 /100 WBCs. The reference range was not used to interpret this result as normal/abnormal . NRBC x10^3 (test code <0.01 See_Comment [Auto mated = 6399097431) message] The system which generated this result transmit syed reference range : 10*3/?L. The reference range was not used to interpret this result as normal/abnormal . GRAN MAT (NEUT) % 79.5 % (test code = 770-8) IMM GRAN % (test code 0.80 % = 5252619280) LYMPH % (test code = 11.4 % 736-9) MONO % (test code = 7.6 % 5905-5) EOS % (test code = 0.3 % 713-8) BASO % (test code = 0.4 % 706-2) GRAN MAT x10^3(ANC) 15.56 10*3/uL 1.88-7.09 H (test code = 2348125607) IMM GRAN x10^3 (test 0.16 10*3/uL 0.00-0.06 H code = 6502905487) LYMPH x10^3 (test code 2.24 10*3/uL 1.32-3.29 = 731-0) MONO x10^3 (test code 1.48 10*3/uL 0.33-0.92 H = 742-7) EOS x10^3 (test code = 0.05 10*3/uL 0.03-0.39 711-2) BASO x10^3 (test code 0.08 10*3/uL 0.01-0.07 H = 704-7) Lab Interpretation Abnormal (test code = 98250-0) [facility] [id number] 01:12:10 Test Item Value Reference Range Interpretation Comments LACTIC ACID (test code = 1.19 mmol/L 0.50-2.20 1238426796) Lab Interpretation (test code = Normal 69637-3) [facility]"
[2021-12-20] MEDS ORDERED: CEFTRIAXONE 1000 MG/VIAL ONE (15:39)
[2021-12-20] MEDS ORDERED: NA CHLORIDE 0.9% 1,000 ML ONE ×2 (15:39→19:14)
[2021-12-20] MEDS ORDERED: NA CHLORIDE 0.9% 50 ML ONE (15:39)
[2021-12-20] MEDS ORDERED: ONDANSETRON 4 MG/2 ML VIAL ONE ×2 (15:39→17:33)
[2021-12-20] MEDS ORDERED: MORPHINE 4 MG/ML SYR ONE (15:39)
[2021-12-20 15:40] LABS: Absolute Lymphocytes (CBC) 3.9 K/uL (0.7-4.9); Hematocrit 35.4 % (36.0-45.0); Lymphocytes % 26.4 % (15.3-44.8); MPV 7.8 fL (7.6-11.3); RBC Red Blood Cell Count 3.99 M/uL (3.86-4.86)
[2021-12-20 15:50] LABS: Protime INR 1.17
[2021-12-20 15:52] LABS: Urine Blood 2+ (Negative); Urine Glucose Negative (Negative); Urine Protein 2+ (Negative); Urine pH 5.5 (5.0-7.0)
[2021-12-20 15:56] LABS: Bilirubin Total 0.3 mg/dL (0.2-1.0); Potassium 3.1 mmol/L (3.5-5.1); Protein, Total 6.7 g/dL (6.4-8.2)
[2021-12-20 16:01] LABS: Urine Bacteria <20 /HPF (<20); Urine RBC 20-50 /HPF (NONE SEEN)
[2021-12-20] MEDS ORDERED: FENTANYL CITR 100 MCG/2 ML ONE ×2 (17:33→20:25)
--- NOTE | 2021-12-20 18:54 | RAD REPORT ---
EXAM DESCRIPTION: CT - Abdomen Pelvis Wo Contrast - 12/20/2021 6:40 pm CLINICAL HISTORY: Abdominal pain flank pain COMPARISON: None TECHNIQUE: Computed axial tomography of the abdomen and pelvis was obtained. IV and oral contrast we re not requested. All CT scans are performed using dose optimization technique as appropriate and may include automated exposure control or mA/KV adjustment according to patient size. FINDINGS: The evaluation of solid organs, vessels and bowel is limited secondary to the lack of con trast administration. Proximal aspect of a right ureteral stent within right renal pelvis. Distal aspect of the stent withi n the bladder. Mild right hydronephrosis. Air is present within calices. 6 millimeter calculus left kidney. Minimal left hydronephrosis. Couple of additional punctate calculi within the kidneys Several low-density structures are present within the kidneys. Cholecystectomy Liver, spleen, pancreas adrenals unremarkable The appendix is normal. There is no evidence of diverticulitis. IMPRESSION: Right ureteral stent in place. Mild right hydronephrosis. Air within the right calices c ould be secondary to recent instrumentation or infection. Several low-density areas within the kidneys. These could represent cysts or pyelonephritis.
--- NOTE | 2021-12-20 19:02 | ER ---
Nurse's Notes [facility] Name: Chely Galindo Age: 41 yrs Sex: Female : 1980 Arrival Date: 12/20/2021 Time: 15:03 Bed 19 Private MD: Diagnosis: Sepsis, unspecified organism;retained uretertal stent;Pyelonephritis acute Presentation: 12/20 15:13 Acuity: ANGIE 3 iw 15:15 Chief complaint: Patient states: had stent placed in right kidney on Tuesday in [place], iw left AMA from there because she lives down here , pt was told to follow up in local ER, pt still having a lot of pain. Coronavirus screen: At this time, the client does not indicate any symptoms associated with coronavirus-19. Ebola Screen: Patient negative for fever greater than or equal to 101.5 degrees Fahrenheit, and additional compatible Ebola Virus Disease symptoms Patient denies exposure to infectious person. Patient denies travel to an Ebola-affected area in the 21 days before illness onset. No symptoms or risks identified at this time. Initial Sepsis Screen: Does the patient meet any 2 criteria? HR > 90 bpm. Does the patient have a suspected source of infection? Yes:. Risk Assessment: Do you want to hurt yourself or someone else? Patient reports no desire to harm self or others. Onset of symptoms was December 20, 2021. 15:15 Method Of Arrival: Wheelchair iw Historical: - Allergies: 15:40 No Known Allergies; iw Screenin:41 Abuse screen: Denies threats or abuse. Denies injuries from another. Nutritional iw screening: No deficits noted. Tuberculosis screening: No symptoms or risk factors identified. Fall Risk IV access (20 points). Assessment: 15:54 General: Appears uncomfortable, ill, Behavior is cooperative. Pain: Complains of pain iw in low back area, mid back area, right mid back and right low back. Neuro: Level of Consciousness is awake, alert, obeys commands, Oriented to person, place, time, situation, Moves all extremities. Cardiovascular: Patient's skin is warm and dry. Respiratory: Respiratory effort is even, unlabored, Respiratory pattern is regular. GI: Reports nausea. : Reports pain in right flank(s), in lower back urgency. Derm: Skin is intact, is healthy with good turgor. 16:15 Reassessment: Patient appears in no apparent distress at this time. Patient and/or iw family updated on plan of care and expected duration. Pain level reassessed. 18:37 Reassessment: Patient appears in no apparent distress at this time. Patient and/or iw family updated on plan of care and expected duration. Pain level reassessed. Patient is alert, oriented x 3, equal unlabored respirations, skin warm/dry/pink. 20:28 Reassessment: Patient appears in no apparent distress at this time. Pain: Complains of ke1 pain in head Pain currently is 6 out of 10 on a pain scale. 21:14 Reassessment: Patient appears in no apparent distress at this time. Report called and ke1 given to cristobal WINSTON Patient states feeling better. Patient states symptoms have improved. Vital Signs: 15:10 BP 140 / 82; Pulse 103; Resp 18; Temp 98.4; Pulse Ox 100% on R/A; iw 16:08 Weight 99.79 kg; Height 5 ft. 6 in. (167.64 cm); iw 16:14 BP 148 / 83; Pulse 98; Resp 16; Pulse Ox 99% on R/A; iw 16:52 BP 125 / 81; Pulse 100; Resp 16; Pulse Ox 100% on R/A; iw 19:01 BP 114 / 84; Pulse 79; Resp 16; Pulse Ox 100% on R/A; iw 20:46 BP 130 / 87; Pulse 77; Resp 15; Temp 98.5(O); Pulse Ox 100% ; ke1 16:08 Body Mass Index 35.51 (99.79 kg, 167.64 cm) iw ED Course: 15:03 Patient arrived in ED. jj6 15:05 Jenn Prieto PA is PHCP. en 15:05 Christopher Guerrero MD is Attending Physician. en 15:13 Triage completed. iw 15:20 Inserted saline lock: 20 gauge in right wrist, using aseptic technique. iw 15:30 Initial lab(s) drawn, by me, sent to lab. iw 15:40 Sabrina Marin, RN is Primary Nurse. iw 16:15 Patient has correct armband on for positive identification. iw 18:42 CT Abd/Pelvis - Without Contrast In Process Unspecified. EDMS 19:10 Called for transfer to [facility] [place] spoke to "Mare". wm 19:35 IV discontinued. jd3 19:36 Inserted saline lock: 20 gauge in left antecubital area, using aseptic technique. jd3 19:39 PHCP role handed off by Jenn Prieto PA kb 19:39 Asya Sood FNP-C is PHCP. kb 20:[address] for transfer is Dr. Jaren Olivo. wm 20:22 Pt accepted for transfer to [facility], admin on file is Mare Iraheta. wm 21:13 No provider procedures requiring assistance completed. ke1 Administered Medications: 15:39 Drug: NS 0.9% 1000 ml Route: IV; Rate: 1 bolus; Site: right forearm; jd3 17:50 Follow up: IV Status: Completed infusion iw 15:39 Drug: morphine 4 mg Route: IVP; Infused Over: 4 mins; Site: right forearm; jd3 16:10 Follow up: Response: No adverse reaction iw 15:40 Drug: Zofran (Ondansetron) 4 mg Route: IVP; Site: right forearm; jd3 16:10 Follow up: Response: No adverse reaction iw 15:45 Drug: Rocephin (cefTRIAXone) 1 grams Route: IV; Rate: calculated rate; Site: right iw wrist; 16:10 Follow up: IV Status: Completed infusion iw 17:30 Drug: fentaNYL (PF) 50 mcg Route: IVP; Site: right wrist; iw 18:38 Follow up: Response: No adverse reaction; Pain is decreased iw 17:30 Drug: Zofran (Ondansetron) 4 mg Route: IVP; Site: right wrist; iw 18:38 Follow up: Response: No adverse reaction iw 19:16 Drug: Ketorolac 15 mg Route: IVP; Site: right wrist; iw 19:45 Follow up: Response: Pain is decreased ke1 19:36 Drug: NS 0.9% 1000 ml Route: IV; Rate: 1 bolus; Site: left antecubital; jd3 20:29 Follow up: IV Status: Completed infusion ke1 20:29 Drug: Phenergan (promethazine) 12.5 mg Route: IVP; Site: left antecubital; ke1 21:13 Follow up: Response: No adverse reaction ke1 20:29 Drug: fentaNYL (PF) 25 mcg Route: IVP; Site: left antecubital; ke1 21:13 Follow up: Response: Marked relief of symptoms ke1 Outcome: 19:01 ER care complete, transfer ordered by MD. bowles 21:13 Transferred by ground EMS ke1 21:13 Condition: stable 21:13 Instructed on the need for transfer. 21:15 Patient left the ED. ke1 Signatures: Dispatcher [employer] EDAsya Hermosillo, DOPE POURER-C DOPE POURER-CkSabrina Agee RN RN Jose Matthew RN RN Norma Grissom Jennifer jj6 Judi Temple RN RN ke1 Jenn Prieto PA PA en
--- NOTE | 2021-12-20 19:02 | EDPHYS ---
Physician Documentation [facility] Name: Chely Galindo Age: 41 yrs Sex: Female : 1980 Arrival Date: 12/20/2021 Time: 15:03 Bed 19 Private MD: ED Physician Christopher Guerrero HPI: 12/20 19:39 This 41 yrs old Female presents to ER via Wheelchair with complaints of Post Surgical kb Pain. 15:12 41-year-old female with history of hidradenitis suppurativa presents to the ED with en bilateral flank pain for the last 5 days. She was seen at outside facility in [place] and admitted for pyelonephritis with PRESTON secondary to right ureteral stricture. She is status post right ureteral stent placement postop day 2 at the facility in [place]. She had to sign out AMA to head back home to [place]. She was last given antibiotics yesterday. Per medical record provided by the patient, she had a WBC of 19,000 the morning she left the hospital. she reports nausea with nonbloody nonbilious emesis, persistent bilateral flank pain worse on the left with hematuria and urinary frequency. Historical: - Allergies: 15:40 No Known Allergies; iw ROS: 15:12 Constitutional: Negative for fever, chills, and weight loss. en 15:12 Constitutional: Negative for fatigue, fever. 15:12 Respiratory: Negative for cough, shortness of breath. 15:12 Abdomen/GI: Positive for Bilateral flank pain radiating to the abdomen greater on the left. Nausea with nonbloody nonbilious emesis. No diarrhea.. 15:12 Back: Positive for flank pain, bilaterally. 15:12 : Positive for flank pain, hematuria, Negative for urinary frequency, foul smelling urine. 15:12 All other systems are negative. Exam: 15:12 Constitutional: Is a accountable secondary to pain, well-hydrated. en 15:12 Constitutional: The patient appears alert, awake. 15:12 Eyes: Conjunctiva: normal, no exudate, no injection. 15:12 ENT: Mouth: Lips: moist, Oral mucosa: pink and intact, moist, Posterior pharynx: Airway: patent. 15:12 Neck: ROM/movement: is normal. 15:12 Cardiovascular: Rate: tachycardic, actual rate is 102 bpm, Rhythm: regular, Pulses: no pulse deficits are appreciated, Heart sounds: normal, no murmur, no rub, no gallop. 15:12 Respiratory: the patient does not display signs of respiratory distress, Respirations: normal, Breath sounds: are clear throughout, no rales, rhonchi, no stridor, no wheezing. 15:12 Abdomen/GI: Inspection: abdomen appears normal, Bowel sounds: normal, in all quadrants, Palpation: abdomen is soft and non-tender, in all quadrants. 15:12 Back: CVA tenderness, that is moderate, is noted bilaterally, L>>R. 15:12 Skin: Exam negative for no rash present. 15:12 Neuro: Orientation: is normal, appropriate for stated age, no acute changes, to person, place \\T\\ time. Mentation: is normal, appropriate for stated age. 15:12 Psych: Behavior/mood is pleasant, cooperative, Affect is calm. Vital Signs: 15:10 BP 140 / 82; Pulse 103; Resp 18; Temp 98.4; Pulse Ox 100% on R/A; iw 16:08 Weight 99.79 kg; Height 5 ft. 6 in. (167.64 cm); iw 16:14 BP 148 / 83; Pulse 98; Resp 16; Pulse Ox 99% on R/A; iw 16:52 BP 125 / 81; Pulse 100; Resp 16; Pulse Ox 100% on R/A; iw 19:01 BP 114 / 84; Pulse 79; Resp 16; Pulse Ox 100% on R/A; iw 20:46 BP 130 / 87; Pulse 77; Resp 15; Temp 98.5(O); Pulse Ox 100% ; ke1 16:08 Body Mass Index 35.51 (99.79 kg, 167.64 cm) iw MDM: 15:12 Differential diagnosis: Pyelonephritis, ureteral stricture causing obstruction, UTI, en ureterolithiasis. Data reviewed: vital signs, nurses notes. ED course: Patient with recent WBC of 19 and tachycardic to 102, this is 2 SIRS criteria on arrival. Sepsis protocol initiated. Blood cultures drawn, will start with 1 L NS bolus pending lactic acid. Will give Rocephin 1 g for suspected infection.. 15:25 Patient medically screened. en 17:04 ED course: Pt with WBC 14.8 and Lactic acid 2.1. Sepsis without severe sepsis or septic en shock. IVF and Abx completed. Will repeat lactic Acid and manage pain. Source: pyelonephritis 2/2 ureteral stricture with retained stent. Pending CT.. 17:29 Data reviewed: lab test result(s), CBC, electrolytes, hepatic panel, urinalysis, EKG, en radiologic studies, CT scan, EKG with NSR at 90bpm No STEMI. 18:46 ED course: Proved but with persistent pressure. We will give IV Toradol. Patient also en reporting mild headache. Will give additional IV fluids. Nausea resolved. Awaiting CT results and will initiate transfer. 19:00 ED course: CT reviewed with retained right ureteral stent with mild hydro and en pyelonephritis. Will initiate transfer for higher level of care secondary to need for urology. Transfer diagnosis sepsis, pyelonephritis, retained ureteral stent. 20:00 ED course: Dr Arnold accepts pt for transfer to [facility]. 12/20 15:12 Order name: Blood Culture Adult (2) en 12/20 15:12 Order name: CBC with Diff; Complete Time: 17:04 en 12/20 15:12 Order name: CMP; Complete Time: 17:04 en 12/20 15:12 Order name: Lactate; Complete Time: 17:04 12/20 15:12 Order name: Protime (+inr); Complete Time: 17:04 en 12/20 15:12 Order name: Ptt, Activated; Complete Time: 17:04 12/20 15:12 Order name: Urine Culture en 12/20 15:12 Order name: Urine Microscopic Only; Complete Time: 17:04 en 12/20 15:53 Order name: Urine Dipstick-Ancillary; Complete Time: 17:04 [facility] 12/20 15:54 Order name: Urine --Ancillary (enter results) eb 12/20 15:55 Order name: Urine --Ancillary; Complete Time: 17:04 [facility] 12/20 18:44 Order name: COVID-19 SARS RT PCR (Document "Date of Onset" if Symptomatic); Complete en Time: 19:59 12/20 18:54 Order name: Lactate Sepsis 2 HR Follow-up; Complete Time: 18:59 [facility] 12/20 15:12 Order name: Accucheck; Complete Time: 16:15 en 06/12 15:12 Order name: Cardiac monitoring; Complete Time: 16:13 en 12/20 15:12 Order name: EKG - Nurse/Tech; Complete Time: 16:13 en 12/20 15:12 Order name: IV Saline Lock - Large Bore; Complete Time: 15:48 en 12/20 15:12 Order name: Labs collected and sent; Complete Time: 15:48 en 12/20 17:32 Order name: CT Abd/Pelvis - Without Contrast; Complete Time: 18:59 en 12/20 15:12 Order name: O2 Per Protocol; Complete Time: 15:49 en 12/20 15:12 Order name: O2 Sat Monitoring; Complete Time: 15:49 en 12/20 15:12 Order name: Urine Test (obtain specimen); Complete Time: 16:15 en Administered Medications: 15:39 Drug: NS 0.9% 1000 ml Route: IV; Rate: 1 bolus; Site: right forearm; jd3 17:50 Follow up: IV Status: Completed infusion iw 15:39 Drug: morphine 4 mg Route: IVP; Infused Over: 4 mins; Site: right forearm; jd3 16:10 Follow up: Response: No adverse reaction iw 15:40 Drug: Zofran (Ondansetron) 4 mg Route: IVP; Site: right forearm; jd3 16:10 Follow up: Response: No adverse reaction iw 15:45 Drug: Rocephin (cefTRIAXone) 1 grams Route: IV; Rate: calculated rate; Site: right iw wrist; 16:10 Follow up: IV Status: Completed infusion iw 17:30 Drug: fentaNYL (PF) 50 mcg Route: IVP; Site: right wrist; iw 18:38 Follow up: Response: No adverse reaction; Pain is decreased iw 17:30 Drug: Zofran (Ondansetron) 4 mg Route: IVP; Site: right wrist; iw 18:38 Follow up: Response: No adverse reaction iw 19:16 Drug: Ketorolac 15 mg Route: IVP; Site: right wrist; iw 19:45 Follow up: Response: Pain is decreased ke1 19:36 Drug: NS 0.9% 1000 ml Route: IV; Rate: 1 bolus; Site: left antecubital; jd3 20:29 Follow up: IV Status: Completed infusion ke1 20:29 Drug: Phenergan (promethazine) 12.5 mg Route: IVP; Site: left antecubital; ke1 21:13 Follow up: Response: No adverse reaction ke1 20:29 Drug: fentaNYL (PF) 25 mcg Route: IVP; Site: left antecubital; ke1 21:13 Follow up: Response: Marked relief of symptoms ke1 Disposition Summary: 12/20/21 19:01 Transfer Ordered Transfer Location: [facility] en Reason: Higher level of care en Condition: Stable en Problem: new en Symptoms: are unchanged en Accepting Physician: pending(12/20/21 21:15) ke1 Diagnosis - Sepsis, unspecified organism en - retained uretertal stent en - Pyelonephritis acute en Forms: - Medication Reconciliation Form en - SBAR form en Critical care time excluding procedures: 19:31 Critical care time: Bedside Care: 20 minutes, Consultation: 15 minutes. Total time: 35 en minutes Signatures: Dispatcher [employer] EDAsya Hermosillo, MELVIN TEMPLETON-Sabrina Parrish RN RN iw Davies, Jonathon, RN RN jd3 Ebrottie, Kouassi, RN RN ke1 Jenn Prieto PA PA en Corrections: (The following items were deleted from the chart) 15:17 15:12 41-year-old female with history of hidradenitis suppurativa presents to the ED en with bilateral flank pain for the last 5 days. She was seen at outside facility in [place] and admitted for pyelonephritis with PRESTON secondary to right ureteral stricture. She is status post right ureteral stent placement postop day 2 at the facility in [place]. She had to sign out AMA to head back home to [place]. She was last given antibiotics yesterday. Per medical record provided by the patient, she had a WBC of 19,000 the morning she left the hospital. she reports nausea with nonbloody nonbilious emesis, persistent bilateral flank pain worse on the left. No fever, chills, dysuria hematuria or urinary frequency.. en 17:43 17:05 LACTATE+C.LAB.BRZ ordered. EDMS EDMS 21:15 19:01 pending en ke1
[2021-12-20] MEDS ORDERED: KETOROLAC 30 MG/ML INJ ONE (19:14)
[2021-12-20] MEDS ORDERED: PROMETHAZINE INJ 25 MG/ML AMP ONE (20:24)
[2021-12-20 21:31] VITALS: O2SAT 100
[2021-12-20 21:37] VITALS: BP 130/87; TEMP 98.5
--- NOTE | 2021-12-21 13:34 | EKG ---
Test Date: 2021-12-20 Test Time: 16:01:35 Sand Mixer Machine: NATALY MEASUREMENT RESULTS: Intervals: Rate: 90 PA: 140 QRSD: 98 QT: 388 QTc: 474 [place]: P: 46 PA: 140 QRS: 67 T: 45 INTERPRETIVE STATEMENTS: Normal sinus rhythm Normal ECG No previous ECG available for comparison Electronically Signed On 12-21-21 13:33:41 CDT by Logan Duggan
== END 2021-12-20 21:15 | disposition short-term general hospital (02) ==
LOC: ER 15:01
DX: A41.9 Sepsis, unspecified organism (principal); N10 Acute pyelonephritis; Z98.890 Other specified postprocedural states; Z20.822 Contact with and (suspected) exposure to COVID-19
CPT/HCPCS: 93005; 87040 ×2; 87088; 85025; 87086; 36415; 81025; 85610; 83605 ×2; 85730; 80053; 74176; 99285; U0003; J2550; J3010 ×2; J7030 ×2; J2405 ×2; 81003; 81015